=== PATIENT | female | born 1975 | race Caucasian/White ===

== ENCOUNTER 2020-03-16 21:27 | Emergency (ER) | payer OTHER ==
[~2020-03-16] VITALS: Ht 172.7 cm; Wt 110.0 kg
[2020-03-16 22:53] LABS: URINE HCG NEGATIVE (NEG)
[2020-03-16 22:54] LABS: BASOPHILS % (AUTO) 0.4 % (0-1); EOSINOPHILS # (AUTO) 0.2 X10'3 (0-0.9); EOSINOPHILS % (AUTO) 2.9 % (0-6); HEMATOCRIT 32.9 % (35.0-45.0); HEMOGLOBIN 11.3 g/dl (12.0-16.0); LYMPHOCYTES # (AUTO) 1.8 X10'3 (1.1-4.8); LYMPHOCYTES % (AUTO) 28.7 % (21-51); MEAN CORPUSCULAR HEMOGLOBIN 30.4 PG (27.0-31.0); MEAN CORPUSCULAR HGB CONC 34.4 g/dL (33.0-36.5); MEAN CORPUSCULAR VOLUME 88.2 FL (78-98); MEAN PLATELET VOLUME 8.7 FL (7.4-10.4); MONOCYTES # (AUTO) 0.5 X10'3 (0-0.9); MONOCYTES % (AUTO) 8.3 % (2-12); NEUTROPHILS # (AUTO) 3.6 X10'3 (1.8-7.7); NEUTROPHILS % (AUTO) 59.7 % (42-75); PLATELET COUNT 255 X10'3 (140-440); RED BLOOD COUNT 3.73 X10'6 (4.20-5.60); RED CELL DISTRIBUTION WIDTH 13.6 % (11.5-14.5); WHITE BLOOD COUNT 6.1 X10'3 (4.5-11.0)
[2020-03-16 22:55] LABS: CLARITY,URINE CLEAR (Clear); COLOR,URINE YELLOW (Yellow); GLUCOSE, URINE NEGATIVE (Neg); KETONES,URINE NEGATIVE (Neg); LEUKOCYTE ESTERASE ,URINE NEGATIVE (Neg); NITRITES, URINE NEGATIVE (Neg); OCCULT BLOOD,URINE MODERATE (Neg); PH,URINE 5.5 (4.8-8.0); PROTEIN,URINE NEGATIVE (Neg)
--- NOTE | 2020-03-16 22:57 | NUR ---
ASSISTED DR GOLDEN WITH PELVIC EXAMINE, PT SHASHI WELL,
[2020-03-16 23:03] LABS: UA COLLECTION TYPE CLN CATCH MIDSTREAM
[2020-03-16 23:05] LABS: BACTERIA,URINE NONE SEEN /HPF (Neg); MUCUS STRANDS MODERATE /LPF (Neg); RBC,URINE 0-2 /HPF (0-2); SQUAMOUS EPITHELIAL CELL,UR FEW /LPF (FEW); WBC,URINE 0-4 /HPF (0-4)
[2020-03-16] MEDS ORDERED: medroxyprogesterone acet. 2.5mg tablet PO STA (23:13)
[2020-03-16] MEDS ORDERED: MEDR5TAB PO (23:15)
[2020-03-16 23:43] VITALS: BP 137/73
== END 2020-03-16 23:44 | disposition home or self-care (01) ==
LOC: ER 21:28
DX: N93.9 Abnormal uterine and vaginal bleeding, unspecified (principal); R10.30 Lower abdominal pain, unspecified; Z98.890 Other specified postprocedural states; Z79.899 Other long term (current) drug therapy
CPT/HCPCS: 36415; 81001; 81025; 85025; 99283; 99284

== ENCOUNTER 2020-06-16 17:12 | Emergency (ER) | payer OTHER ==
[~2020-06-16] VITALS: Ht 172.7 cm; Wt 109.0 kg
[~2020-06-16 17:12] MED LIST: MEDR5TAB PO
--- NOTE | 2020-06-16 18:41 | NUR ---
TAKING OVER CARE WHILE PRIMARY RN IS ON LUNCH; WILL CONTINUE TO MONITOR.
[2020-06-16 18:58] VITALS: BP 148/86
[2020-06-16] MEDS ORDERED: ketorolac tromethamine 15mg/ml inj. IM ONE (20:45)
--- NOTE | 2020-06-16 21:03 | NUR ---
Pt medicated as ordered for pain. Provider ASHLEE Reyna gave verbal ok for the patient to take her dose of Tegretol from home while awaiting discharge instructions to go home.
== END 2020-06-16 21:16 | disposition home or self-care (01) ==
LOC: ER 17:12
DX: M79.601 Pain in right arm (principal); R20.2 Paresthesia of skin; Z98.890 Other specified postprocedural states; Z79.899 Other long term (current) drug therapy
CPT/HCPCS: 96372; 99283; J1885

== ENCOUNTER 2020-06-24 00:49 | Emergency (ER) | payer OTHER ==
[~2020-06-24] VITALS: Ht 172.7 cm; Wt 110.0 kg
[2020-06-24 01:25] VITALS: BP 169/85
== END 2020-06-24 01:27 | disposition home or self-care (01) ==
LOC: ER 00:49
DX: M25.511 Pain in right shoulder (principal); M79.601 Pain in right arm; Z98.890 Other specified postprocedural states; Z79.899 Other long term (current) drug therapy
CPT/HCPCS: 99283

== ENCOUNTER 2020-11-10 15:14 | Emergency (ER) | payer MEDICAID ==
[~2020-11-10] VITALS: Ht 172.7 cm; Wt 110.0 kg
[2020-11-10 15:18] VITALS: BP 151/32
[2020-11-10] MEDS ORDERED: acetaminophen 325mg tablet PO ONE (15:45)
== END 2020-11-10 16:55 | disposition home or self-care (01) ==
LOC: ER 15:14
DX: M79.662 Pain in left lower leg (principal); Z98.890 Other specified postprocedural states; Z79.899 Other long term (current) drug therapy
CPT/HCPCS: 93971; 99284

== ENCOUNTER 2021-08-29 15:43 | Emergency (ER) | payer MEDICAID ==
[~2021-08-29] VITALS: Ht 172.7 cm; Wt 109.1 kg
[2021-08-29 16:02] VITALS: BP 153/92
== END 2021-08-29 16:33 | disposition home or self-care (01) ==
LOC: ER 15:44
DX: M77.51 Other enthesopathy of right foot and ankle (principal); M25.571 Pain in right ankle and joints of right foot; Z98.890 Other specified postprocedural states; Z79.899 Other long term (current) drug therapy
CPT/HCPCS: 99281

== ENCOUNTER 2022-04-10 14:20 | Emergency (ER) | payer MEDICAID ==
[~2022-04-10] VITALS: Ht 172.7 cm; Wt 104.5 kg
[2022-04-10 14:57] VITALS: BP 180/106
[2022-04-10 15:35] LABS: BASOPHILS % (AUTO) 0.4 % (0-1); EOSINOPHILS # (AUTO) 0.4 X10'3 (0-0.9); EOSINOPHILS % (AUTO) 4.4 % (0-6); HEMATOCRIT 39.3 % (35.0-45.0); HEMOGLOBIN 13.2 g/dl (12.0-16.0); LYMPHOCYTES # (AUTO) 1.3 X10'3 (1.1-4.8); LYMPHOCYTES % (AUTO) 15.5 % (21-51); MEAN CORPUSCULAR HEMOGLOBIN 28.3 PG (27.0-31.0); MEAN CORPUSCULAR HGB CONC 33.6 g/dL (33.0-36.5); MEAN CORPUSCULAR VOLUME 84.3 FL (78-98); MEAN PLATELET VOLUME 8.2 FL (7.4-10.4); MONOCYTES # (AUTO) 0.6 X10'3 (0-0.9); MONOCYTES % (AUTO) 7.1 % (2-12); NEUTROPHILS # (AUTO) 6.2 X10'3 (1.8-7.7); NEUTROPHILS % (AUTO) 72.6 % (42-75); PLATELET COUNT 363 X10'3 (140-440); RED BLOOD COUNT 4.66 X10'6 (4.20-5.60); RED CELL DISTRIBUTION WIDTH 12.8 % (11.5-14.5); WHITE BLOOD COUNT 8.5 X10'3 (4.5-11.0)
[2022-04-10 15:42] LABS: ALANINE AMINOTRANSFERASE 31 U/L (12-78); ALBUMIN/GLOBULIN RATIO 1.1 (1.1-1.5); ALKALINE PHOSPHATASE 133 IU/L (46-116); ANION GAP 10 (8-16); ASPARTATE AMINO TRANSFERASE 9 U/L (10-37); BILIRUBIN,TOTAL 0.4 MG/DL (0.1-1.0); BLOOD UREA NITROGEN 10 MG/DL (7-18); BUN/CREATININE RATIO 16.1 (6.6-38.0); CALCIUM 8.7 MG/DL (8.5-10.1); CHLORIDE 101 MMOL/L (99-107); CREATININE 0.62 MG/DL (0.40-0.90); GLUCOSE 106 MG/DL (70-104); LIPASE 297 U/L (73-393); POTASSIUM 3.1 MMOL/L (3.5-5.1); SODIUM 141 MMOL/L (135-145); TOTAL CARBON DIOXIDE 29.8 MMOL/L (24-32); TOTAL PROTEIN 7.7 G/DL (6.4-8.2); eGFR > 90 ML/MIN
[2022-04-10] MEDS ORDERED: NAPR-56 PO (17:09)
[2022-04-10] MEDS ORDERED: ONDA4TAB12 PO (17:09)
[2022-04-10] MEDS ORDERED: TRAM50TA2 PO (17:09)
[2022-04-10] MEDS ORDERED: morphine 4 MG/ML inj SYRINge IV PRN (17:10)
[2022-04-10] MEDS ORDERED: ondansetron/PF 4mg/2ml inj IV ONE (17:10)
[2022-04-10] MEDS ORDERED: ketorolac trometh. 30mg/ml inj. IV ONE (17:10)
[2022-04-10] MEDS ORDERED: normal saline 1000ML IV soln IVB ONE (17:10)
[2022-04-10] MEDS ORDERED: HYDROcodone/acetaminophen 10/325mg tab PO ONE (17:35)
[2022-04-10] MEDS ORDERED: ondansetron 4mg rapidly disintigrating tab PO ONE (17:50)
[2022-04-10] MEDS ORDERED: ketorolac tromethamine 15mg/ml inj. IM ONE (17:50)
== END 2022-04-10 18:50 | disposition home or self-care (01) ==
LOC: ER 14:20
DX: K80.80 Other cholelithiasis without obstruction (principal); K80.50 Calculus of bile duct without cholangitis or cholecystitis without obstruction; Z79.899 Other long term (current) drug therapy
CPT/HCPCS: 36415; 76700; 80053; 83690; 85025; 96372; 99284; J1885

== ENCOUNTER 2022-04-21 08:06 | Emergency (ER) | payer MEDICAID ==
[~2022-04-21] VITALS: Ht 172.7 cm; Wt 104.5 kg
[~2022-04-21 08:06] MED LIST changes: +NAPR-56 PO; +ONDA4TAB12 PO; +TRAM50TA2 PO
[2022-04-21] MEDS ORDERED: HYDROcodone/acetaminophen 5mg/325mg tablet PO ONE (09:35)
[2022-04-21 11:32] VITALS: BP 125/65
== END 2022-04-21 11:57 | disposition home or self-care (01) ==
LOC: ER 08:10
DX: R11.2 Nausea with vomiting, unspecified (principal); R51.9 Headache, unspecified; Z98.890 Other specified postprocedural states; Z79.899 Other long term (current) drug therapy
CPT/HCPCS: 99283

== ENCOUNTER 2022-05-04 12:39 | Day surgery (SDC) | payer MEDICAID ==
[2022-05-02 10:07] LABS: BASOPHILS % (AUTO) 0.4 % (0-1); EOSINOPHILS # (AUTO) 0.1 X10'3 (0-0.9); LYMPHOCYTES # (AUTO) 0.8 X10'3 (1.1-4.8); LYMPHOCYTES % (AUTO) 17.1 % (21-51); MEAN CORPUSCULAR HEMOGLOBIN 29.1 PG (27.0-31.0); MEAN CORPUSCULAR HGB CONC 33.6 g/dL (33.0-36.5); MEAN CORPUSCULAR VOLUME 86.6 FL (78-98); MEAN PLATELET VOLUME 8.5 FL (7.4-10.4); MONOCYTES # (AUTO) 0.4 X10'3 (0-0.9); MONOCYTES % (AUTO) 9.2 % (2-12); NEUTROPHILS # (AUTO) 3.1 X10'3 (1.8-7.7); NEUTROPHILS % (AUTO) 70.3 % (42-75); PRE OP HEMATOCRIT 34.5 % (35.0-45.0); PRE OP HEMOGLOBIN 11.6 g/dL (12.0-16.0); PRE OP PLATELET COUNT 217 X10'3 (140-440); RED BLOOD COUNT 3.98 X10'6 (4.20-5.60); RED CELL DISTRIBUTION WIDTH 14.8 % (11.5-14.5)
[2022-05-02 10:25] LABS: HCG SERUM QL NEGATIVE
[2022-05-02 11:32] LABS: ALBUMIN 3.5 G/DL (3.4-5.0); ALBUMIN/GLOBULIN RATIO 1.3 (1.1-1.5); ALKALINE PHOSPHATASE 125 IU/L (46-116); BLOOD UREA NITROGEN 8 MG/DL (7-18); BUN/CREATININE RATIO 13.8 (6.6-38.0); CALCIUM 8.1 MG/DL (8.5-10.1); CHLORIDE 104 MMOL/L (99-107); CREATININE 0.58 MG/DL (0.40-0.90); PRE OP ALT 54 U/L (30-65); PRE OP ANION GAP 10 (8-16); PRE OP AST 14 U/L (10-37); PRE OP BILIRUB, TOTAL 0.5 MG/DL (0.0-1.0); PRE OP POTASSIUM 3.8 MMOL/L (3.4-5.1); PRE OP SODIUM 143 MMOL/L (135-145); TOTAL PROTEIN 6.3 G/DL (6.4-8.2); eGFR > 90 ML/MIN
[2022-05-02 11:44] LABS: PRE OP GLUCOSE 87 MG/DL (70-104)
[2022-05-04] VITALS (10 sets, daily range): BP systolic 119–154; BP diastolic 65–98
[~2022-05-04] VITALS: Ht 172.7 cm; Wt 105.6 kg
[~2022-05-04 12:39] MED LIST changes: +AMPH20TA3 PO; +AMPH30CA3 PO; +BACL-11 PO; +BACL10TA PO; +CARB200T PO; +CARB200T8 PO; +CHOL500050 PO; +DALF10TA3 PO; +DULO30CA52 PO; +GABA300C PO; +INDOCYANINE GREEN 25 MG/10 ML VIAL IV ONE; -MEDR5TAB PO; -NAPR-56 PO; +OCRE300V IV; +ONDA-103 PO; -ONDA4TAB12 PO; +PREG50CA64 PO; +TAPE50TA9 PO; -TRAM50TA2 PO; +ceFAZolin inj. 2,000 MG in dextrose 5%-water 100 ML IV ONE; +famotidine 20mg tablet PO ONE; +ringers solution, lacted 1,000 ML IV SCH
[2022-05-04] MEDS ORDERED: LIDOcaine 1% W/epiNEPHrine 1:100,000 20ml vial ONE (13:01)
[2022-05-04] MEDS ORDERED: BUPIVAcaine 0.5% inj/PF 30 ML ONE (13:01)
[2022-05-04] MEDS ORDERED: LIDOcaine 2% (20mg/ml) 5ml vial ONE (13:05)
[2022-05-04] MEDS ORDERED: rocuronium 10mg/ml inj IV ONE (13:05)
[2022-05-04] MEDS ORDERED: scopolamine 1.5mg patch.TD72 (72-hour patch) TD ONE (13:05)
[2022-05-04] MEDS ORDERED: propofol inj 20 ML IV ONE (13:05)
[2022-05-04] MEDS ORDERED: ondansetron/PF 4mg/2ml inj ONE (13:06)
[2022-05-04] MEDS ORDERED: ringers solution, lacted 1,000 ML IV SCH (13:30)
[2022-05-04] MEDS ORDERED: morphine 2 MG/ML inj. syringe IV PRN (13:30)
[2022-05-04] MEDS ORDERED: labetalol 20mg/4ml (5mg/ml) syringe IV PRN (13:30)
[2022-05-04] MEDS ORDERED: fentaNYL/PF 50MCG/1 ML 2ML syringe IV PRN ×2 (13:30)
[2022-05-04] MEDS ORDERED: ondansetron/PF 4mg/2ml inj IV PRN (13:30)
[2022-05-04] MEDS ORDERED: hydrALAZINE 20mg/ml inj. IV PRN (13:30)
[2022-05-04] MEDS ORDERED: morphine 4 MG/ML inj SYRINge IV PRN (13:30)
[2022-05-04] MEDS ORDERED: scopolamine 1mg/72 hr patch TD SCH (13:40)
[2022-05-04] MEDS ORDERED: fentaNYL/PF 50MCG/1 ML 2ML syringe ONE (14:43)
[2022-05-04] MEDS ORDERED: midazolam 1 mg/ML 2ml injection ONE (14:44)
[2022-05-04] MEDS ORDERED: dexamethasone sod phosphate 10mg/ml inj ONE (14:46)
[2022-05-04] MEDS ORDERED: sevoflurane 250ml liquid IH ONE (14:46)
[2022-05-04] MEDS ORDERED: labetalol 20mg/4ml (5mg/ml) syringe IV ONE (15:05)
[2022-05-04] MEDS ORDERED: LIDOcaine 1%/PF 5ML 10 MG/ML VIAL ONE (15:07)
[2022-05-04] MEDS ORDERED: acetaminophen 1,000mg/100ml IV 100 ML IV ONE (15:11)
[2022-05-04] MEDS ORDERED: hydrALAZINE 20mg/ml inj. IV ONE (15:11)
[2022-05-04] MEDS ORDERED: neostigmine methylsulfate 1 MG/ML 10ml vial ONE (15:31)
[2022-05-04] MEDS ORDERED: glycopyrrolate 0.2mg/ml inj ONE (15:32)
--- NOTE | 2022-05-04 16:07 | NUR ---
Received from OR via ANNMARIE, accompanied by Anesthesiologist SAAD and report given by Anesthesiolgist. PATIENT WITH 20G PIV IN RIGHT AC RUNNING LR AT 100. 4 ABDOMINAL LAP SITES PRESENT THAT ARE CDI. PATIENT WITH 10L MASK ON WITH 100% SATURATIONS. Addendum: 05/04/22 at 1624 by Donnie Lopez RN, RN Amended: Links added.
[2022-05-04] MEDS ORDERED: HYDROcodone/acetaminophen 5mg/325mg tablet PO PRN (16:15)
--- NOTE | 2022-05-04 17:37 | NUR ---
ALL DISCHARGE CRITERIA HAS BEEN MET. VSS, PAIN AT A TOLERABLE LEVEL, VOIDING AND ABLE TO SAFELY AMBULATE AND TRANSFER SELF. IV TAKEN OUT WITHOUT ANY COMPLICATIONS. ALL DISCHARGE INSTRUCTIONS COVERED WITH PATIENT AND ALL QUESTIONS ANSWERED. PATIENT TAKEN OUT VIA WHEELCHAIR TO PERSONAL VEHICLE WHERE FAMILY/FRIEND DROVE PATIENT HOME. GAVE DISCHARGE INSTRUCTIONS INDIVIDUALLY TO PATIENT AND HER MOTHER. ALL QUESTIONS ANSWERED. EDUCATED ON SCOPALAMINE PATCH REMOVAL WELL. SUPPLIED ALCOHOL WIPES WELL TO HER MOTHER. DRESSINGS STILL CDI TO ABDOMEN. Addendum: 05/04/22 at 1806 by Donnie Lopez RN, RN Amended: Links added.
== END 2022-05-04 17:37 | disposition home or self-care (01) ==
LOC: PAS 12:39
PROVIDERS: ATTEND Surgery
DX: K80.12 Calculus of gallbladder with acute and chronic cholecystitis without obstruction (principal); G47.30 Sleep apnea, unspecified; I10 Essential (primary) hypertension; E66.9 Obesity, unspecified; Z68.35 Body mass index [BMI] 35.0-35.9, adult; D64.9 Anemia, unspecified; M19.90 Unspecified osteoarthritis, unspecified site; G35 Multiple sclerosis; J44.9 Chronic obstructive pulmonary disease, unspecified; Z90.721 Acquired absence of ovaries, unilateral; Z79.899 Other long term (current) drug therapy; Z98.890 Other specified postprocedural states; Z82.3 Family history of stroke; Z82.49 Family history of ischemic heart disease and other diseases of the circulatory system; Z82.61 Family history of arthritis
CPT/HCPCS: 36415; 47563; 80053; 82948; 84703; 85025; J0131; J0360; J0690; J1100; J2250; J2405; J2704; J2710; J3010; J3490; J7030; J7060; J7120; S0020; S2900; Z7506; Z7508; Z7512; A4215; A4618; A7000

== ENCOUNTER 2023-10-24 13:25 | Emergency (ER) | payer MEDICARE, MEDICAID ==
[~2023-10-24] VITALS: Ht 172.7 cm; Wt 109.1 kg
[~2023-10-24 13:25] MED LIST changes: -BACL10TA PO; -INDOCYANINE GREEN 25 MG/10 ML VIAL IV ONE; -PREG50CA64 PO; -ceFAZolin inj. 2,000 MG in dextrose 5%-water 100 ML IV ONE; -famotidine 20mg tablet PO ONE; -ringers solution, lacted 1,000 ML IV SCH
[2023-10-24] MEDS ORDERED: dexamethasone sod phosphate 10mg/ml inj PO STA (15:50)
[2023-10-24] MEDS ORDERED: ACYC-1 PO (16:31)
[2023-10-24] MEDS ORDERED: PRED20TA PO (16:31)
[2023-10-24 16:48] VITALS: BP 190/103; PULSE 68; RESP 18; TEMP 97.7; O2SAT 98
[2023-10-24] MEDS ORDERED: ATEN25TA PO (18:44)
== END 2023-10-24 16:52 | disposition home or self-care (01) ==
LOC: ER 13:26
DX: G51.0 Bell's palsy (principal); Z79.899 Other long term (current) drug therapy
CPT/HCPCS: 93005; 99283; J1100; A6410

== ENCOUNTER 2023-11-15 10:51 | Emergency (ER) | payer MEDICARE, MEDICAID ==
[~2023-11-15] VITALS: Ht 172.7 cm; Wt 111.7 kg
[~2023-11-15 10:51] MED LIST changes: +ACYC-1 PO; +ATEN25TA PO; +PRED20TA PO
[2023-11-15] MEDS ORDERED: methylPREDNISolone sod succ 125mg/2ml vial IM ONE (12:05)
[2023-11-15 12:34] VITALS: BP 157/70; PULSE 59; RESP 16; TEMP 98.4; O2SAT 97
== END 2023-11-15 12:25 | disposition home or self-care (01) ==
LOC: ER 10:51
DX: G51.0 Bell's palsy (principal); G35 Multiple sclerosis; Z79.2 Long term (current) use of antibiotics; Z79.899 Other long term (current) drug therapy
CPT/HCPCS: 96372; 99283; J2930

== ENCOUNTER → 2024-06-11 | Day surgery (SDC) | payer MEDICARE, MEDICAID ==
[~2024-06-11] MED LIST changes: -ACYC-1 PO; -PRED20TA PO
== END | disposition home or self-care (01) ==
LOC: SSTAY O 15:19
PROVIDERS: ATTEND Nurse Practitioner Family
DX: I87.8 Other specified disorders of veins (principal)
CPT/HCPCS: 36410; 76937; C1751

== ENCOUNTER 2025-03-28 15:26 | Emergency (ER) | payer MEDICARE, MEDICAID ==
[~2025-03-28] VITALS: Ht 172.7 cm; Wt 109.1 kg
[2025-03-28 15:28] VITALS: BP 183/87; PULSE 94; TEMP 98.2; O2SAT 100
--- NOTE | 2025-03-28 16:17 | RADIOLOGY REPORT ---
CLINICAL INDICATION: HAND PAIN TECHNIQUE: Frontal, oblique and lateral views of the left hand. Comparison: None FINDINGS/IMPRESSION: : There is no evidence of acute fracture or dislocation. Mild degenerative change at the 1st carpometacarpal joint. Soft tissues are unremarkable.
--- NOTE | 2025-03-28 16:49 | Physician Documentation ---
History of Present Illness ~ Chief Complaint: Wrist pain Stated Complaint: FALL Time Seen by MD: 15:39 OK to notify your PCP?: Yes Primary Medical Doctor: unknown Source: patient Mode of Arrival: Dropped Off Exam Limitations: no limitations HPI Livia is a 49-year-old female presenting with left hand pain after falling while [place] and putting her hand down to catch her. She has pain and swelling and tenderness to palpation. Full range of motion. Denies any numbness or tingling in fingers. No pain medication taken prior to arrival. Denies head strike, loss of consciousness, or other injuries from her fall. Tetanus within 5 years: Yes Medication Reconciliation Allergies: Coded Allergies: No Known Allergies (Unverified , 06/24/20) Scheduled Amphet Asp/Amphet/D-Amphet XR* (Adderall XR*), 1 CAP PO QAM, (Reported) Atenolol (Atenolol), 1 TAB PO DAILY Baclofen (Baclofen), 1 TAB PO QAM, (Reported) Carbamazepine (Carbamazepine), 1 TAB PO QID, (Reported) Carbamazepine (Tegretol), 2 TAB PO HS, (Reported) Cholecalciferol (Vitamin D3) (Vitamin D3), 1 CAP PO DAILY, (Reported) Dalfampridine (Dalfampridine ER), 1 TAB PO BID, (Reported) Dextroamphetamine/Amphetamine (Adderall 20 mg Tablet), 1 TAB PO NOON, (Reported) Duloxetine HCl (Duloxetine HCl), 1 CAP PO BID, (Reported) Gabapentin (Neurontin), 1 CAP PO Q6H, (Reported) Ocrelizumab (Ocrevus), 1,000 MG IV [id number], (Reported) Scheduled PRN Ondansetron HCl (Ondansetron HCl), 1 TAB PO Q8H PRN for nausea/vomiting, (Repo rted) Tapentadol HCl (Nucynta ER), 1 TAB PO BID PRN for pain, (Reported) Past Medical History Past Medical History: Multiple Sclerosis Past Surgical History: orthopedic surgeries Other Past Surgical History: Ectopic surgery Smoking Status: Never smoker Alcohol Use: None Drug Use: none Lives with: Family Lives In: Home Review of Systems All Other Systems at this time: Reviewed and Negative Physical Exam Vital Signs: RN Vital Signs have been reviewed: Yes, Temperature: 98.2, Source: Oral, Heart Rate: 94, Respiratory Rate: 16, BP: 183/87, Pulse Oximetry: 100, Weight: 109.090 Pulse Oximetry Reflects: adequate oxygenation Physical Exam General: Alert, no apparent distress. HEENT: PERRL, EOMI, no injection, moist mucous membranes. Neck: Full range of motion. Respiratory: Lungs clear, no respiratory distress. Chest: No accessory muscle use. Cardiovascular: Regular rate and rhythm, no murmurs. Gastrointestinal: Soft, nontender, nondistended. Bowels sounds present. Extremities: Normal range of motion, no deformity. Tenderness over anatomical snuffbox and the radial side of the carpal tunnel. Pain with wrist pronation and axial loading of the thumb. Ecchymosis and edema to left hand on radial aspect. Neurologic: Oriented x4. Psychiatric: Normal mood and affect. Skin: Normal color, warm and dry. No edema, no ecchymosis. Progress Results/Orders Results/Orders Orders - JADE SIERRA [employer] OPERATOR Hydrocodone/Apap 10/325 ([place] 10/325mg (03/28/25 16:45) Naproxen Tablet (Naprosyn Tablet) (03/28/25 16:45) Vital Signs 03/28/25 15:28 Temp 98.2 Pulse 94 Resp 16 B/P (MAP) 183/87 Pulse Ox 100 EKG/XRAY/CT/US/VASC/MRI Bone/Soft Tissue X-Ray (Ext.) : Additional Comment Left hand x-ray as interpreted by me; no joint effusion, no acute fracture, no soft tissue swelling, no dislocation, or foreign body. Medical Decision Making Findings Livia is a 49-year-old female presenting with FOOSH injury- left hand pain after falling while crossing [place] and putting her hand down to catch herself. Denies any numbness or tingling in fingers. On exam she has tenderness over the anatomical snuffbox, pain with wrist pronation, tenderness to the radial side of the carpal tunnel and pain with axial loading of the thumb which raises my suspicions for a possible scaphoid fracture. We discussed that although her hand x-ray was normal and did not show any acute fracture, she needs to follow up with her primary care provider in the next 3 days for a referral to Orthopedics as she does need repeat imaging in 10-14 days to evaluate for an occult fracture. Thumb spica splint applied in department, and pain relief with [place] and naproxen given. Prescription sent to pharmacy for [place] and naproxen. She should return for any new or worsening symptoms. She agrees with this plan General Diff Dx:Considerations: Include: Contusion, Fracture, Malunion, Neurovascular injury, Sprain Additional Comment Scaphoid fracture Departure Disposition: 01 HOME / SELF CARE / HOMELESS Impression: Primary Impression: Wrist injury Condition: Stable Additional Instructions: As we discussed, your left hand x-ray is normal and does not show any acute fracture however due to your symptoms there is a suspicion of a possible scaphoid fracture. Please wear your splint as instructed and use the naproxen twice daily for pain relief. You have been given [place] to use if the naproxen is not able to control your pain. Follow up with her primary care provider in the next 3 days for a referral to Orthopedics as she does need repeat imaging in 10-14 days to evaluate for an occult fracture. Referrals: NO PRIMARY CARE PROVIDER (PCP) Prescriptions Hydrocodone Bit/Acetaminophen 5/325 MG ([place] 5/325 MG) 5 Mg/325 Mg Tablet 1-2 TAB PO Q4-6 hours PRN for pain, #20 TAB Prov: JADE SIERRA [employer] OPERATOR 03/28/25 Naproxen (Naproxen) 500 Mg Tablet 1 TAB PO Q12H PRN for pain, #20 TAB Prov: JADE SIERRA [employer] OPERATOR 03/28/25 Education Educated: Patient Educated regarding: diagnosis, treatment, prognosis, need for follow up Signature Scribe Signature: . Attestation: Scribed for Jade Sierra Rn Corrections by Jade Lopez NP . 03/28/25 16:58 JADE SIERRAP March 28, 2025 16:49
[2025-03-28 16:50] VITALS: RESP 16
[2025-03-28] MEDS: naproxen 500mg tablet PO ONE (16:50)
[2025-03-28] MEDS: HYDROcodone/acetaminophen 10/325mg tab PO ONE (16:50)
[2025-03-28] MEDS ORDERED: HYDR-3965 PO (16:57)
[2025-03-28] MEDS ORDERED: NAPR-56 PO (16:57)
== END 2025-03-28 17:56 | disposition home or self-care (01) ==
LOC: ER 15:26
DX: S69.92XA Unspecified injury of left wrist, hand and finger(s), initial encounter (principal); G35 Multiple sclerosis; W19.XXXA Unspecified fall, initial encounter; Y93.89 Activity, other specified; Y92.89 Other specified places as the place of occurrence of the external cause; Y99.8 Other external cause status
CPT/HCPCS: 29125; 73130; 99283; A4565; A6446; A6449

== ENCOUNTER 2025-05-03 11:24 | Emergency (ER) | payer MEDICARE, MEDICAID ==
[~2025-05-03] VITALS: Ht 172.7 cm; Wt 92.3 kg
--- NOTE | 2025-05-03 13:49 | Physician Documentation ---
History of Present Illness ~ Chief Complaint: Mechanical Fall Stated Complaint: FALL/RIB PAIN Time Seen by MD: 12:14 Primary Medical Doctor: unknown HPI Patient is seen today with complaints of sustaining a fall yesterday where she fell forward onto a protruding wooden board that hit her in the upper abdomen on the left side as well as her left lower ribcage. Denies any blood in her stool or urine. She denies any lightheadedness or headache or chest pain or shortness of breath or nausea, vomiting, diarrhea. Patient does admit to left upper quadrant abdominal pain and left lower ribcage pain. She has no other concern or complaint at this time. Tetanus within 5 Years?: Yes Medication Reconciliation Allergies: Coded Allergies: No Known Allergies (Unverified , 06/24/20) Scheduled Amphet Asp/Amphet/D-Amphet XR* (Adderall XR*), 1 CAP PO QAM, (Reported) Atenolol (Atenolol), 1 TAB PO DAILY Baclofen (Baclofen), 1 TAB PO QAM, (Reported) Carbamazepine (Carbamazepine), 1 TAB PO QID, (Reported) Carbamazepine (Tegretol), 2 TAB PO HS, (Reported) Cholecalciferol (Vitamin D3) (Vitamin D3), 1 CAP PO DAILY, (Reported) Dalfampridine (Dalfampridine ER), 1 TAB PO BID, (Reported) Dextroamphetamine/Amphetamine (Adderall 20 mg Tablet), 1 TAB PO NOON, (Reported) Duloxetine HCl (Duloxetine HCl), 1 CAP PO BID, (Reported) Gabapentin (Neurontin), 1 CAP PO Q6H, (Reported) Ocrelizumab (Ocrevus), 1,000 MG IV [id number], (Reported) Scheduled PRN Ondansetron HCl (Ondansetron HCl), 1 TAB PO Q8H PRN for nausea/vomiting, (Reported) Tapentadol HCl (Nucynta ER), 1 TAB PO BID PRN for pain, (Reported) Discontinued Medications Hydrocodone Bit/Acetaminophen 5/325 MG (Lindsay 5/325 MG), 1-2 TAB PO Q4-6 hours PRN for pain Discontinued Reason: Auto Discontinued Naproxen (Naproxen), 1 TAB PO Q12H PRN for pain Discontinued Reason: Auto Discontinued Past Medical History Past Medical History: Multiple Sclerosis Past Surgical History: orthopedic surgeries Other Past Surgical History: Ectopic surgery Alcohol Use: None Drug Use: none Lives with: Family Lives In: Home Review of Systems Constitutional: Denies: chills, fever, weakness Eyes: Denies: pain, blurred vision ENT: Denies: ear pain, nose pain, throat pain, mouth pain Respiratory: Denies: cough, shortness of breath Cardiovascular: Denies: chest pain, palpitations Gastrointestinal: Denies: abdominal pain, nausea, vomiting Genitourinary: Denies: burning, dysuria Female Genitalia: Denies: vaginal discharge, pelvic pain Neurological: Denies: headache, dizziness Musculoskeletal: Denies: pain, swelling Integumentary: Denies: rash, lesions Allergic/Immunologic: Denies: hives, itching Hematologic/Lymphatic: Denies: no symptoms reported Psychiatric: Denies: depression, anxiety Physical Exam Vital Signs: Temperature: 97.6, Source: Temporal, Heart Rate: 74, Respiratory Rate: 15, BP: 159/88, Pulse Oximetry: 100, Weight: 92.350 Physical Exam General: Awake and Alert, no acute distress. HEENT: Conjunctiva pink, Sclera clear, Mucus Membranes moist. Neck: Supple without masses and tenderness. Resp: Unlabored. Lungs clear to auscultation bilaterally. Heart: Regular Rate and rhythm, normal S1 and S2 without murmur, rub or gallop. Chest: Patient on exam does have tenderness to palpation of the left lower ribcage. Not appreciate any step-off. Abdomen: Patient on exam does have tenderness to palpation in the left upper quadrant with visible bruising of the abdomen. Abdomen is soft, nondistended, guarding of the left upper quadrant, no rebound tenderness. Extremities: No cyanosis,clubbing or edema. Skin: Warm and Dry. Progress Results/Orders Results/Orders Orders - RICK BALL PAC Ultrasound Of Abdomen (05/03/25 13:47) Uni Ribs With Pa Chest (05/03/25 14:05) Completed Orders - RICK BALL PAC Ultrasound Of Abdomen (05/03/25 13:47) Cbc/Diff (05/03/25 13:48) CMP (05/03/25 13:48) Uni Ribs With Pa Chest (05/03/25 14:05) Vital Signs 05/03/25 11:25 Temp 97.6 Pulse 74 Resp 15 B/P (MAP) 159/88 Pulse Ox 100 Laboratory Tests Test 05/03/25 14:21 White Blood Count 5.9 Red Blood Count 4.14 L Hemoglobin 12.0 Hematocrit 35.7 Mean Corpuscular Volume 86.2 Mean Corpuscular Hemoglobin 29.0 Mean Corpuscular Hemoglobin Concent 33.6 Red Cell Distribution Width 15.1 H Platelet Count 267 Mean Platelet Volume 8.0 Neutrophils (%) (Auto) 69.2 Lymphocytes (%) (Auto) 20.8 L Monocytes (%) (Auto) 6.6 Eosinophils (%) (Auto) 2.6 Basophils (%) (Auto) 0.8 Neutrophils # (Auto) 4.1 Lymphocytes # (Auto) 1.2 Monocytes # (Auto) 0.4 Eosinophils # (Auto) 0.2 Basophils # (Auto) 0.0 CBC Comment Sodium Level 143 Potassium Level 3.7 Chloride Level 105 Carbon Dioxide Level 29.2 Anion Gap 9 Blood Urea Nitrogen 8 Creatinine 0.54 Estimated GFR/1.73 m2 > 90 BUN/Creatinine Ratio 14.8 Glucose Level 112 H Calcium Level 8.6 Total Bilirubin 0.2 Aspartate Amino Transf (AST/SGOT) 9 L Alanine Aminotransferase (ALT/SGPT) 15 Alkaline Phosphatase 129 H Total Protein 6.6 Albumin 3.6 Globulin 3.0 Albumin/Globulin Ratio 1.2 Chemistry Comments EKG/XRAY/CT/US/VASC/MRI Chest X-Ray : Additional Comments Chest x-ray interpreted by myself today shows no sign of acute fracture or rib fracture, no large effusion, no large infiltrate. Normal mediastinum. DIAGNOSTIC RADIOLOGY Patient: СЕРГЕЙ SHEPARD Medical Record: [id number] : 1975, Age: 49 Sex: Female Location: ER Patient Status: REG ER Service Date/Time: 05/03/25/ 1404 Ordering Physician: RICK BALL PAC Exam: UNI RIBS WITH PA CHEST [facility] EXAMINATION: DI UNI RIBS WITH PA CHEST INDICATION: rib pain LEFT COMPARISON: None TECHNIQUE: Frontal view of the chest and 3 views of the left ribs history FINDINGS: No focal consolidation, pleural effusion or significant pneumothorax. Normal cardiomediastinal silhouette. No displaced left rib fracture. IMPRESSION: No acute cardiopulmonary disease. No displaced left rib fracture. Electronically Signed by:ISAIAH BRYANT MD Date & Time: 05/03/251441 Dictated by: ISAIAH BRYANT MD Dictation date and time: 05/03/251441 Primary Care Provider: NO PRIMARY CARE PROVIDER cc: RICK BALL PAC ~ Ultrasound : Impression ULTRASOUND Patient: СЕРГЕЙ SHEPARD Medical Record: [id number] [facility] : 1975, Age: 49 Sex: Female Location: ER Patient Status: [facility] ER Service Date/Time: 05/03/251346 Ordering Physician: RICK BALL PAC Exam: ULTRASOUND OF ABDOMEN INDICATION: LUQ abd pain TECHNIQUE: Multiple real-time sonographic images of the abdomen were obtained. COMPARISON: ULTRASOUND OF ABDOMEN on DOS: 04/10/22 FINDINGS: The liver is homogenous in echogenicity. The liver measures 18cm. No intrahepatic biliary ductal dilatation is noted. Gallbladder surgically removed. Common bile duct measures 4 mm. The right kidney measures 11cm. No hydronephrosis. The left kidney measures 11cm. No hydronephrosis. The spleen measures 11cm, within normal limits. The echogenicity is within normal limits. The pancreas is not well visualized due to obscuration from bowel gas. The visualized portions of the IVC and aorta are grossly unremarkable. IMPRESSION: Normal exam of the abdomen. Electronically Signed by:ISAIAH BRYANT MD Date & Time: 05/03/251506 Dictated by: ISAIAH BRYANT MD Dictation date and time: 05/03/251506 Primary Care Provider: NO PRIMARY CARE PROVIDER cc: RICK BALL PAC ~ Medical Decision Making Findings Patient is seen today with complaints of sustaining a fall yesterday where she fell forward onto a protruding wooden board that hit her in the upper abdomen on the left side as well as her left lower ribcage. Denies any blood in her stool or urine. She denies any lightheadedness or headache or chest pain or shortness of breath or nausea, vomiting, diarrhea. Patient does admit to left upper quadrant abdominal pain and left lower ribcage pain. She has no other concern or complaint at this time. Patient did have rib series x-ray and chest x-ray that showed no sign of acute rib fracture, abdominal ultrasound that also returned unremarkable for any acute process. Patient's labs are all reassuring. Patient was given Toradol injection 30 mg IM in the ED today. Patient will continue Tylenol and ibuprofen as needed for symptomatic pain relief. Patient will continue deep breathing exercise as outlined in the ED today. Patient will follow up with primary care in 3-5 days if no better as needed sooner. Return to ED with any worsening, concerning or changing symptoms. Departure Disposition: 01 HOME / SELF CARE / HOMELESS Impression: Primary Impression: Rib pain Additional Impression: Contusion Qualified Codes: S20.212A - Contusion of left front wall of thorax, initial encounter Condition: Improved Discharge Instructions: Rib Contusion Additional Instructions: Patient did have rib series x-ray and chest x-ray that showed no sign of acute rib fracture, abdominal ultrasound that also returned unremarkable for any acute process. Patient's labs are all reassuring. Patient was given Toradol injection 30 mg IM in the ED today. Patient will continue Tylenol and ibuprofen as needed for symptomatic pain relief. Patient will continue deep breathing exercise as outlined in the ED today. Patient will follow up with primary care in 3-5 days if no better as needed sooner. Return to ED with any worsening, concerning or changing symptoms. Referrals: NO PRIMARY CARE PROVIDER (PCP) Prescriptions Ibuprofen (Ibuprofen) 600 Mg Tablet 1 TAB PO Q8H for pain for 10 Days, #30 TAB 0 Refills with food Prov: RICK BALL 05/03/25 Signature Scribe Signature: No scribe Attestation: No scribe RICK BALL PAC May 03, 2025 13:49
[2025-05-03 14:29] LABS: BASOPHILS % (AUTO) 0.8 % (0-1); EOSINOPHILS # (AUTO) 0.2 X10'3 (0-0.9); EOSINOPHILS % (AUTO) 2.6 % (0-6); HEMATOCRIT 35.7 % (35.0-45.0); LYMPHOCYTES # (AUTO) 1.2 X10'3 (1.1-4.8); LYMPHOCYTES % (AUTO) 20.8 % (21-51); MEAN CORPUSCULAR HGB CONC 33.6 g/dL (33.0-36.5); MEAN CORPUSCULAR VOLUME 86.2 FL (78-98); MONOCYTES # (AUTO) 0.4 X10'3 (0-0.9); MONOCYTES % (AUTO) 6.6 % (2-12); NEUTROPHILS # (AUTO) 4.1 X10'3 (1.8-7.7); NEUTROPHILS % (AUTO) 69.2 % (42-75); PLATELET COUNT 267 X10'3 (140-440); RED BLOOD COUNT 4.14 X10'6 (4.20-5.60); RED CELL DISTRIBUTION WIDTH 15.1 % (11.5-14.5); WHITE BLOOD COUNT 5.9 X10'3 (4.5-11.0)
[2025-05-03 14:44] LABS: ALANINE AMINOTRANSFERASE 15 U/L (12-78); ALBUMIN 3.6 G/DL (3.4-5.0); ALBUMIN/GLOBULIN RATIO 1.2 (1.1-1.5); ALKALINE PHOSPHATASE 129 IU/L (46-116); ANION GAP 9 (8-16); ASPARTATE AMINO TRANSFERASE 9 U/L (10-37); BILIRUBIN,TOTAL 0.2 MG/DL (0.1-1.0); BLOOD UREA NITROGEN 8 MG/DL (7-18); BUN/CREATININE RATIO 14.8 (10.0-20.0); CALCIUM 8.6 MG/DL (8.5-10.1); CHLORIDE 105 MMOL/L (99-107); CREATININE 0.54 MG/DL (0.40-0.90); GLUCOSE 112 MG/DL (70-104); POTASSIUM 3.7 MMOL/L (3.5-5.1); SODIUM 143 MMOL/L (135-145); TOTAL CARBON DIOXIDE 29.2 MMOL/L (24-32); TOTAL PROTEIN 6.6 G/DL (6.4-8.2); eCRCL 130 ML/MIN; eGFR > 90 ML/MIN
--- NOTE | 2025-05-03 14:44 | RADIOLOGY REPORT ---
[facility] EXAMINATION: DI UNI RIBS WITH PA CHEST INDICATION: rib pain LEFT COMPARISON: None TECHNIQUE: Frontal view of the chest and 3 views of the left ribs history FINDINGS: No focal consolidation, pleural effusion or significant pneumothorax. Normal cardiomediastinal silhou ette. No displaced left rib fracture. IMPRESSION: No acute cardiopulmonary disease. No displaced left rib fracture.
--- NOTE | 2025-05-03 15:10 | RADIOLOGY REPORT ---
INDICATION: LUQ abd pain TECHNIQUE: Multiple real-time sonographic images of the abdomen were obtained. COMPARISON: ULTRASOUND OF ABDOMEN on DOS: 04/10/22 FINDINGS: The liver is homogenous in echogenicity. The liver measures 18cm. No intrahepatic biliary ductal dilatation is noted. Gallbladder surgically removed. Common bile duct measures 4 mm. The right kidney measures 11cm. No hydronephrosis. The left kidney measures 11cm. No hydronephrosis . The spleen measures 11cm, within normal limits. The echogenicity is within normal limits. The pancreas is not well visualized due to obscuration from bowel gas. The visualized portions of the IVC and aorta are grossly unremarkable. IMPRESSION: Normal exam of the abdomen.
[2025-05-03] MEDS ORDERED: IBUP-1985 PO (15:54)
[2025-05-03] MEDS: ketorolac trometh 30MG/ML vial 30 MG/ML VIAL IM STA (16:10)
[2025-05-03 16:14] VITALS: BP 120/68; PULSE 66; RESP 16; TEMP 97.6; O2SAT 99
== END 2025-05-03 16:16 | disposition home or self-care (01) ==
LOC: ER 11:24
DX: S20.212A Contusion of left front wall of thorax, initial encounter (principal); G35 Multiple sclerosis; W22.8XXA Striking against or struck by other objects, initial encounter; Y93.89 Activity, other specified; Y92.89 Other specified places as the place of occurrence of the external cause; Y99.8 Other external cause status
CPT/HCPCS: 36415; 71101; 76700; 80053; 85025; 96372; 99285; J1885